=== PATIENT | female | born 1950 | race Caucasian/White ===

== ENCOUNTER 2016-09-30 22:54 | Emergency (ER) | payer OTHER | END 2016-10-01 03:30 | disposition home or self-care (01) | LOC: ER1 22:54 | DX: K08.89 Other specified disorders of teeth and supporting structures (principal); Z79.899 Other long term (current) drug therapy | CPT/HCPCS: 70486; 96372; 99283; J1885 ==

== ENCOUNTER → 2020-05-24 | Outpatient (CLI) | payer OTHER ==
[~2020-05-24] MED LIST: ALPHA LIPOIC A200 M1 PO; BASAGLAR K100 UNIT/1 SQ; BYETTA10 MCG/0.0 SC; CLARITIN10 MG PO; CLEOCIN 150MG150 MG PO; DITROPAN 5 MG TA5 MG PO; ECOTRIN81 MG PO; IRON PO; JANUVIA100 MG PO; LIORESAL TAB 1010 MG PO; LIPITOR40 MG PO; NEURONTIN 300300 MG PO; NORCO 10-325 T1 EACH PO; OMNICEF 300 MG300 MG PO; PHENERGAN 25 MG25 M1 PO; PRINIVIL10 MG PO; PULMICORT FLEX90 MCG INH; SINGULAIR10 MG PO; VENTOLIN HFA 66.7 GM INH; ZOFRAN ODT 4 MG4 MG PO
== END ==
LOC: HEART 5 14:56
DX: R06.02 Shortness of breath (principal); R05 Cough; R94.2 Abnormal results of pulmonary function studies
CPT/HCPCS: 94010

== ENCOUNTER 2021-05-24 16:40 | Emergency (ER) | payer OTHER ==
[2021-05-24] MEDS ORDERED: DOXYCYCLINE HY100 M2 PO (18:52)
[2021-05-24] MEDS ORDERED: CEPHALEXIN500 M1 PO (18:52)
== END 2021-05-24 19:00 | disposition home or self-care (01) ==
LOC: ER1 16:40
DX: L03.116 Cellulitis of left lower limb (principal); E10.9 Type 1 diabetes mellitus without complications; I10 Essential (primary) hypertension; E78.5 Hyperlipidemia, unspecified; Z79.82 Long term (current) use of aspirin
CPT/HCPCS: 81001; 87086; 99283

== ENCOUNTER → 2021-07-30 | Outpatient (CLI) | payer OTHER ==
[~2021-07-30] MED LIST changes: +CEPHALEXIN500 M1 PO; +DOXYCYCLINE HY100 M2 PO
== END ==
LOC: WCC 08:47
DX: Z09 Encounter for follow-up examination after completed treatment for conditions other than malignant neoplasm (principal); E11.628 Type 2 diabetes mellitus with other skin complications; Z79.4 Long term (current) use of insulin; Z79.899 Other long term (current) drug therapy; E66.01 Morbid (severe) obesity due to excess calories; J44.9 Chronic obstructive pulmonary disease, unspecified; I10 Essential (primary) hypertension; Z74.09 Other reduced mobility; Z68.44 Body mass index [BMI] 60.0-69.9, adult
CPT/HCPCS: G0463

== ENCOUNTER 2021-09-03 14:04 | Observation (INO) | payer OTHER ==
[~2021-09-03] VITALS: Ht 170.2 cm; Wt 170.6 kg
[~2021-09-03 14:04] MED LIST changes: +FERROUS SULFAT325 MG PO; +HYDROCODON-ACE1 EAC6 PO; -IRON PO; -NORCO 10-325 T1 EACH PO; +PHENERGAN 12.12.5 M1 PO; -PHENERGAN 25 MG25 M1 PO
[2021-09-03 16:37] LABS: HEMOGLOBIN 12.4 gm/dl (12.3-15.3); RED BLOOD COUNT 3.78 M/UL (4.00-5.10); WHITE BLOOD COUNT 7.5 K/UL (4.5-11.0)
[2021-09-04 10:48] LABS: RED BLOOD COUNT 3.88 M/UL (4.00-5.10); WHITE BLOOD COUNT 7.5 K/UL (4.5-11.0)
[2021-09-04] MEDS ORDERED: TRULICITY3 MG/0.5 M SQ (12:17)
[2021-09-04] MEDS ORDERED: NOVOLOG MI100 UNIT/1 SQ (12:17)
[2021-09-04] MEDS ORDERED: LOPRESSOR50 MG PO (12:18)
[2021-09-04] MEDS ORDERED: KENALOG CREAM 015 GM TOP (12:18)
[2021-09-04] MEDS ORDERED: MEGACE TAB 20 M20 MG PO (12:18)
[2021-09-04] MEDS ORDERED: FUROSEMIDE20 MG PO (12:19)
[2021-09-04] MEDS ORDERED: PRESERVISION A1 EACH PO (12:20)
[2021-09-05 02:52] LABS: HEMOGLOBIN 12.3 gm/dl (12.3-15.3); RED BLOOD COUNT 3.7 M/UL (4.00-5.10); WHITE BLOOD COUNT 7.1 K/UL (4.5-11.0)
[2021-09-05] MEDS ORDERED: OMNICEF 300 MG300 MG PO (08:26)
== END 2021-09-05 12:27 | disposition home or self-care (01) ==
LOC: ER1 14:04 → CDU 18:26 → MED SURG 4 09-04 10:30
PROVIDERS: Emergency Medicine; Internal Medicine; ADMIT Internal Medicine
DX: N30.00 Acute cystitis without hematuria (principal); Z20.822 Contact with and (suspected) exposure to COVID-19; I12.9 Hypertensive chronic kidney disease with stage 1 through stage 4 chronic kidney disease, or unspecified chronic kidney disease; E11.22 Type 2 diabetes mellitus with diabetic chronic kidney disease; N18.9 Chronic kidney disease, unspecified; E78.5 Hyperlipidemia, unspecified; I89.0 Lymphedema, not elsewhere classified; J44.9 Chronic obstructive pulmonary disease, unspecified; E66.01 Morbid (severe) obesity due to excess calories; Z68.43 Body mass index [BMI] 50.0-59.9, adult; Z79.4 Long term (current) use of insulin; Z79.82 Long term (current) use of aspirin; Z79.899 Other long term (current) drug therapy
CPT/HCPCS: 80048; 80053; 81001; 82962; 83605; 85025; 85027; 85652; 86140; 87040; 87086; 93970; 94640; 94664; 94760; 96372; 96374; 96375; 96376; 99285; G0378; J0696; J1335; J1644; U0002

== ENCOUNTER 2021-12-21 13:10 | Emergency (ER) | payer OTHER ==
[~2021-12-21 13:10] MED LIST changes: +FUROSEMIDE20 MG PO; +KENALOG CREAM 015 GM TOP; +LOPRESSOR50 MG PO; +MEGACE TAB 20 M20 MG PO; +NOVOLOG MI100 UNIT/1 SQ; +PRESERVISION A1 EACH PO; +TRULICITY3 MG/0.5 M SQ
[2021-12-21 19:27] LABS: HEMOGLOBIN 14.8 gm/dl (12.3-15.3); RED BLOOD COUNT 4.6 M/UL (4.00-5.10); WHITE BLOOD COUNT 9.4 K/UL (4.5-11.0)
[2021-12-21] MEDS ORDERED: BACTRIM DS TAB1 EACH PO (22:35)
[2021-12-21] MEDS ORDERED: CEPHALEXIN500 M1 PO (22:35)
== END 2021-12-21 23:52 | disposition home or self-care (01) ==
LOC: ER1 13:10
PROVIDERS: Physician Assistant
DX: L03.115 Cellulitis of right lower limb (principal); L03.114 Cellulitis of left upper limb; E11.9 Type 2 diabetes mellitus without complications; I10 Essential (primary) hypertension; J44.9 Chronic obstructive pulmonary disease, unspecified; Z88.8 Allergy status to other drugs, medicaments and biological substances
CPT/HCPCS: 80053; 83605; 85025; 85652; 86140; 87040; 96361; 96374; 99283; J0690

== ENCOUNTER 2021-12-26 17:13 | Emergency (ER) | payer OTHER ==
[~2021-12-26 17:13] MED LIST changes: +BACTRIM DS TAB1 EACH PO
[2021-12-26 21:27] LABS: HEMOGLOBIN 13.2 gm/dl (12.3-15.3); RED BLOOD COUNT 4.11 M/UL (4.00-5.10); WHITE BLOOD COUNT 9.5 K/UL (4.5-11.0)
[2021-12-27] MEDS ORDERED: ZOFRAN ODT 4 MG4 MG PO (03:10)
[2021-12-27] MEDS ORDERED: OMNICEF 300 MG300 MG PO (03:10)
== END 2021-12-27 03:48 | disposition home or self-care (01) ==
LOC: ER1 17:13
PROVIDERS: Physician Assistant Medical
DX: U07.1 COVID-19 (principal); L03.115 Cellulitis of right lower limb; N39.0 Urinary tract infection, site not specified; E66.01 Morbid (severe) obesity due to excess calories; C54.1 Malignant neoplasm of endometrium; E11.9 Type 2 diabetes mellitus without complications; E78.5 Hyperlipidemia, unspecified; J45.909 Unspecified asthma, uncomplicated; I10 Essential (primary) hypertension; Z88.8 Allergy status to other drugs, medicaments and biological substances
CPT/HCPCS: 80053; 81001; 82550; 82553; 83605; 84484; 85025; 87086; 93005; 96374; 96375; 99283; J0696; J2405; U0002

== ENCOUNTER → 2022-01-09 | Outpatient (CLI) | payer OTHER | LOC: MO 13:03 → LAB 13:03 | DX: Z53.9 Procedure and treatment not carried out, unspecified reason (principal) ==